=== PATIENT | male | born 1985 | race Caucasian/White ===

== ENCOUNTER 2018-04-13 16:43 | Emergency (ER) | payer OTHER ==
[~2018-04-13] VITALS: Ht 185.4 cm; Wt 88.5 kg
== END 2018-04-13 20:15 | disposition home or self-care (01) ==
LOC: ER 16:43
DX: J45.998 Other asthma (principal)

== ENCOUNTER → 2022-08-10 | Outpatient (CLI) | payer OTHER | END | disposition home or self-care (01) | LOC: LAB 01:54 | PROVIDERS: ATTEND Obstetrics & Gynecology | DX: Z20.828 Contact with and (suspected) exposure to other viral communicable diseases (principal); Z20.818 Contact with and (suspected) exposure to other bacterial communicable diseases ==